=== PATIENT | male | born 1965 | race African-American/Black ===

== ENCOUNTER 2016-11-22 12:47 | Observation (INO) | payer SELFPAY ==
[2016-11-22] MEDS ORDERED: ASPIRIN 81 MG TABLET, CHEWABLE PO ONE (13:10)
--- NOTE | 2016-11-22 13:12 | ER Document Report ---
ED Medical Screen (RME) - General Stated Complaint: ABDOMINAL PAIN Mode of Arrival: Ambulatory Information source: Patient Notes: Patient complains of upper abdominal pain that started 7 this morning and worsened over the past hour. Does complain of some chest discomfort. Patient does complain of shortness of breath but denies any nausea or vomiting. hx: None I have greeted and performed a rapid initial assessment of this patient. A comprehensive ED assessment and evaluation of the patient, analysis of test results and completion of the medical decision making process will be conducted by additional ED providers. TRAVEL OUTSIDE OF THE [place] IN LAST 30 DAYS: No - Related Data Allergies/Adverse Reactions: No Known Allergies Allergy (Unverified 11/22/16 13:11) Past Medical History - Past Medical History Cardiac Medical History: Reports: Hx Hypertension Renal/ Medical History: Reports: Hx Renal Insufficiency Psychiatric Medical History: Denies: Hx Depression - Immunizations Hx Diphtheria, Pertussis, Tetanus Vaccination: No Physical Exam - Vital signs Vitals: Pulse Resp BP 54 L 24 H 168/98 H 11/22/16 12:56 11/22/16 12:56 11/22/16 12:56 - Abdominal Tenderness: Tender - Upper abdomen Course - Vital Signs Vital signs: Temp Pulse Resp BP Pulse Ox 54 L 24 H 168/98 H 11/22/16 12:56 11/22/16 12:56 11/22/16 12:56
[2016-11-22 13:55] LABS: ABSOLUTE EOSINOPHILS # (AUTO) 0.2 10^3/uL (0.0-0.6); ABSOLUTE LYMPHOCYTES (AUTO) 1.8 10^3/uL (0.5-4.7); ABSOLUTE MONOCYTES (AUTO) 0.5 10^3/uL (0.1-1.4); BASOPHILS % (AUTO) 0.4 % (0-2); EOSINOPHILS % (AUTO) 2.5 % (0-6); HEMOGLOBIN 16.3 g/dL (13.5-17.0); HGB HCT DIFFERENCE -3.1; LYMPHOCYTES % (AUTO) 24.3 % (13-45); MEAN CORPUSCULAR HEMOGLOBIN 27.2 pg (27.0-33.4); MEAN CORPUSCULAR HGB CONC 31.3 g/dL (32.0-36.0); MEAN CORPUSCULAR VOLUME 87 fl (80-97); MONOCYTES % (AUTO) 7.2 % (3-13); RED BLOOD COUNT 5.97 10^6/uL (4.35-5.55); RED CELL DISTRIBUTION WIDTH 14.7 % (11.5-14.0); SEGMENTED NEUTROPHILS % (AUTO) 65.6 % (42-78); WHITE BLOOD COUNT 7.6 10^3/uL (4.0-10.5)
[2016-11-22] MEDS ORDERED: LISINOPRIL 10 MG TABLET PO ONE (14:14)
--- NOTE | 2016-11-22 14:14 | ER Document Report ---
ED General - General Chief Complaint: Abdominal Pain Stated Complaint: ABDOMINAL PAIN Mode of Arrival: Ambulatory Information source: Patient Notes: 51 yr old male history of cocaine abuse presents with complaints of severe abdominal pain and chest pain earlier today. Patient notes symptoms have improved significantly felt a sharp pressure sensation in his chest associated with shortness of breath admits to history of hypertension was on lisinopril but has not taken it recently only takes ibuprofen daily Patient last used cocaine on Monday TRAVEL OUTSIDE OF THE [place] IN LAST 30 DAYS: No - HPI Onset: This morning Onset/Duration: Sudden Quality of pain: No pain Severity: Moderate Pain Level: 2 Associated symptoms: Chest pain, Shortness of breath Exacerbated by: Denies Relieved by: Denies Similar symptoms previously: Yes Recently seen / treated by doctor: Yes - Related Data Allergies/Adverse Reactions: No Known Allergies Allergy (Unverified 11/22/16 13:11) Past Medical History - General Information source: Patient - Social History Smoking Status: Never Smoker Cigarette use (# per day): No Chew tobacco use (# tins/day): No Smoking Education Provided: No Frequency of alcohol use: None Drug Abuse: None Family History: Reviewed & Not Pertinent Patient has suicidal ideation: No Patient has homicidal ideation: No - Past Medical History Cardiac Medical History: Reports: Hx Hypertension Renal/ Medical History: Reports: Hx Renal Insufficiency. Denies: Hx Peritoneal Dialysis Psychiatric Medical History: Denies: Hx Depression - Immunizations Hx Diphtheria, Pertussis, Tetanus Vaccination: No Review of Systems - Review of Systems Notes: REVIEW OF SYSTEMS: CONSTITUTIONAL : Denies fever, chills, or sweats. Denies recent illness. EENT: Denies eye, ear, throat, or mouth pain or symptoms. Denies nasal or sinus congestion or discharge. Denies throat, tongue, or mouth swelling or difficulty swallowing. CARDIOVASCULAR: Admits chest pain RESPIRATORY: Admits to shortness of breath GASTROINTESTINAL: Admits to abdominal pain GENITOURINARY: Denies difficulty urinating, painful urination, burning, frequency, blood in urine, or discharge. MUSCULOSKELETAL: Denies back or neck pain or stiffness. Denies joint pain or swelling. SKIN: Denies rash, lesions or sores. HEMATOLOGIC : Denies easy bruising or bleeding. LYMPHATIC: Denies swollen, enlarged glands. NEUROLOGICAL: Denies confusion or altered mental status. Denies passing out or loss of consciousness. Denies dizziness or lightheadedness. Denies headache. Denies weakness or paralysis or loss of use of either side. Denies problems with gait or speech. Denies sensory loss, numbness, or tingling. Denies seizures. PSYCHIATRIC: Denies anxiety or stress. Denies depression, suicidal ideation, or homicidal ideation. ALL OTHER SYSTEMS REVIEWED AND NEGATIVE. Dictation was performed using [employer] voice recognition software PHYSICAL EXAMINATION: GENERAL: Well-appearing, well-nourished and in no acute distress. HEAD: Atraumatic, normocephalic. EYES: Pupils equal round and reactive to light, extraocular movements intact, sclera anicteric, conjunctiva are normal. ENT: Nares patent, oropharynx clear without exudates. Moist mucous membranes. NECK: Normal range of motion, supple without lymphadenopathy LUNGS: Breath sounds clear to auscultation bilaterally and equal. No wheezes rales or rhonchi. HEART: Bradycardia ABDOMEN: Soft, nontender, nondistended abdomen. No guarding, no rebound. No masses appreciated. Musculoskeletal: Normal range of motion, no pitting or edema. No cyanosis. NEUROLOGICAL: Cranial nerves grossly intact. Normal speech, normal gait. Normal sensory, motor exams PSYCH: Normal mood, normal affect. SKIN: Warm, Dry, normal turgor, no rashes or lesions noted. Physical Exam - Vital signs Vitals: Pulse Resp BP 54 L 24 H 168/98 H 11/22/16 12:56 11/22/16 12:56 11/22/16 12:56 Course - Re-evaluation Re-evalutation: 11/22/16 14:11 Patient is noted to have Q waves as well as bradycardia, he is now pain-free 11/22/16 15:21 I will admit to the hospital service for further evaluation of his chest pain given history of cocaine abuse After performing a Medical Screening Examination, I estimate there is LOW risk for RUPTURED ESOPHAGUS, PNEUMOTHORAX, PULMONARY EMBOLISM, ACUTE CORONARY SYNDROME, OR THORACIC AORTIC DISSECTION, thus I consider the discharge disposition reasonable. The patient and I have discussed the diagnosis and risks , and we agree with discharging home with close follow-up. We also discussed returning to the Emergency Department immediately if new or worsening symptoms occur. We have discussed the symptoms which are most concerning (e.g., bloody sputum, worsening pain or shortness of breath) that necessitate immediate return. - Vital Signs Vital signs: Temp Pulse Resp BP Pulse Ox 54 L 19 204/104 H 100 11/22/16 12:56 11/22/16 14:00 11/22/16 14:00 11/22/16 14:00 - Laboratory Result Diagrams: 11/22/16 13:30 11/22/16 13:30 Laboratory results interpreted by me: 11/22/16 13:30 RBC 5.97 H Hct 52.0 H MCHC 31.3 L RDW 14.7 H - Diagnostic Test Radiology reviewed: Image reviewed, Reports reviewed - EKG Interpretation by Me EKG shows normal: Sinus rhythm, [place], Intervals, QRS Complexes - Q waves noted in multiple leads bradycardic Rate: Bradycardia Discharge - Discharge Clinical Impression: Cocaine abuse, Bradycardia Chest pain Qualifiers: Chest pain type: unspecified Qualified Code(s): R07.9 - Chest pain, unspecified Abdominal pain Qualifiers: Abdominal location: unspecified location Qualified Code(s): R10.9 - Unspecified abdominal pain Condition: Stable Disposition: ADMITTED OBSERVATION Admitting Provider: Hospitalist Unit Admitted: Telemetry
[2016-11-22 14:17] LABS: ALANINE AMINOTRANSFERASE 21 U/L (21-72); ALBUMIN 4.3 g/dL (3.5-5.0); ALKALINE PHOSPHATASE 94 U/L (38-126); ANION GAP 17 (5-19); ASPARTATE AMINO TRANSFERASE 18 U/L (17-59); BILIRUBIN,TOTAL 0.3 mg/dL (0.2-1.3); BLOOD UREA NITROGEN 13 mg/dL (7-20); CALCIUM 9.6 mg/dL (8.4-10.2); CARBON DIOXIDE 22 mmol/L (22-30); CHLORIDE 103 mmol/L (98-107); CREATINE KINASE 123 U/L (55-170); CREATININE RESULT 1.12 mg/dL (0.52-1.25); GLUCOSE 107 mg/dL (75-110); LIPASE 92.2 U/L (23-300); MAGNESIUM 1.8 mg/dL (1.6-2.3); POTASSIUM 4.4 mmol/L (3.6-5.0); SODIUM 141.8 mmol/L (137-145); TOTAL PROTEIN 7.4 g/dL (6.3-8.2)
[2016-11-22 14:18] LABS: APPEARANCE,URINE CLEAR; BILIRUBIN,URINE NEGATIVE (NEGATIVE); GLUCOSE, URINE NEGATIVE (NEGATIVE); KETONES,URINE NEGATIVE (NEGATIVE); LEUKOCYTE ESTERASE,URINE NEGATIVE (NEGATIVE); NITRITE,URINE NEGATIVE (NEGATIVE); PROTEIN,URINE NEGATIVE (NEGATIVE); UROBILINOGEN,URINE NEGATIVE mg/dL (<2.0)
[2016-11-22 14:26] LABS: CREATINE KINASE MB 1.61 ng/mL (<4.55)
[2016-11-22 14:30] LABS: TROPONIN I 0.063 ng/mL
[2016-11-22 14:35] LABS: URINE BARBITURATES SCREEN NEGATIVE; URINE METHADONE SCREEN NEGATIVE; URINE PHENCYCLIDINE SCREEN NEGATIVE
[2016-11-22] MEDS ORDERED: DIAZEPAM 5 MG TABLET PO PRN (15:28)
[2016-11-22] MEDS ORDERED: NITROGLYCERIN 0.4 MG/TAB 25 TAB/BOTTLE SL PRN (15:28)
[2016-11-22] MEDS ORDERED: HYDRALAZINE HCL INJ/PF 20 MG/1 ML SDV IV PRN (15:34)
--- NOTE | 2016-11-22 16:24 | EKG REPORT ---
SEVERITY:- BORDERLINE ECG - SINUS BRADYCARDIA ATRIAL PREMATURE COMPLEX BORDERLINE INFERIOR Q WAVES : Confirmed by: Gilmar Sethi MD 22-Nov-2016 16:24:19
[2016-11-22] MEDS ORDERED: MAG CARB/AL HYDROX/ALGINIC AC 355 ML BOTTLE PO PRN (16:57)
[2016-11-22] MEDS ORDERED: LANSOPRAZOLE 30 MG TAB.RAP.DR PO SCH (17:00)
--- NOTE | 2016-11-22 17:14 | PDOC H&P ---
History of Present Illness Admission Date/PCP: 11/22/16 15:28 Patient complains of: Chest pain, abdominal pain and shortness of breath History of Present Illness: GONZALES MONTIEL is a 51 year old male who presents to [facility]'s emergency department this afternoon, with complaints of abdominal pain radiating up to his mid sternum, and shortness of breath. Patient states pain began acutely this morning at 8 AM and has been constant since that time. He describes the pain as a burning sensation that began his abdomen radiated up to his chest. The pain has waxed and waned in intensity. At the present time he rates the pain a 1, on the 0-5 pain scale. He has not had similar pain in the past. He does have a history of hypertension and dyslipidemia. He has not been taking any medications prescribed. He also has a history of recent cocaine use on Monday. He was found to be extremely hypertensive and bradycardic presentation. He states he is short of breath with exertion, which is new as well. He denies any nausea, vomiting, diaphoresis, or palpitations associated with pain. He did have a stress test 2 years ago which was negative. He denies a family history of coronary artery disease in either parent. Past Medical History Cardiac Medical History: Reports: Hyperlipidema, Hypertension Pulmonary Medical History: Reports: None EENT Medical History: Reports: None Neurological Medical History: Reports: None Endocrine Medical History: Reports: None Renal/ Medical History: Reports: None Malignancy Medical History: Reports: None GI Medical History: Reports: None Musculoskeltal Medical History: Reports: None Skin Medical History: Reports: None Psychiatric Medical History: Reports: Substance Abuse Denies: Depression Traumatic Medical History: Reports: None Hematology: Reports: None Infectious Medical History: Reports: None Past Surgical History Past Surgical History: Reports: None Social History Information Source: Patient Lives with: Family Smoking Status: Never Smoker Frequency of Alcohol Use: Rare Hx Recreational Drug Use: Yes Drugs: Cocaine Hx Prescription Drug Abuse: No - Advance Directive Resuscitation Status: Full Code Surrogate healthcare decision maker:: Father, should he become incapacitated Family History Family History: Hyperlipidemia, Hypertension Parental Family History Reviewed: Yes Children Family History Reviewed: Yes Sibling(s) Family History Reviewed.: Yes Medication/Allergy Home Medications: No Home Medications 11/22/16 Allergies/Adverse Reactions: No Known Allergies Allergy (Unverified 11/22/16 13:11) Review of Systems Constitutional: ABSENT: chills, fever(s), headache(s), weight gain, weight loss Eyes: ABSENT: visual disturbances Ears: ABSENT: hearing changes Cardiovascular: PRESENT: chest pain. ABSENT: dyspnea on exertion, edema, orthropnea, palpitations Respiratory: PRESENT: dyspnea - on exertion today Gastrointestinal: PRESENT: abdominal pain, heartburn Genitourinary: ABSENT: dysuria, hematuria Musculoskeletal: ABSENT: joint swelling Integumentary: PRESENT: as per HPI Neurological: ABSENT: abnormal gait, abnormal speech, confusion, dizziness, focal weakness, syncope Psychiatric: ABSENT: anxiety, depression, homidical ideation, suicidal ideation Endocrine: ABSENT: cold intolerance, heat intolerance, polydipsia, polyuria Hematologic/Lymphatic: ABSENT: easy bleeding, easy bruising Physical Exam Vital Signs: Temp Pulse Resp BP Pulse Ox 54 L 17 203/107 H 91 L 11/22/16 12:56 11/22/16 15:32 11/22/16 16:02 11/22/16 16:02 Intake & Output 11/21/16 11/22/16 11/23/16 06:59 06:59 06:59 Weight 79.379 kg General appearance: PRESENT: no acute distress, well-developed, well-nourished Head exam: PRESENT: atraumatic, normocephalic Eye exam: PRESENT: conjunctiva pink, EOMI, PERRLA. ABSENT: scleral icterus Ear exam: PRESENT: normal external ear exam Mouth exam: PRESENT: moist, tongue midline Neck exam: ABSENT: carotid bruit, JVD, lymphadenopathy, thyromegaly Respiratory exam: PRESENT: clear to auscultation ines. ABSENT: rales, rhonchi, wheezes Cardiovascular exam: PRESENT: bradycardia, RRR. ABSENT: diastolic murmur, rubs , systolic murmur Pulses: PRESENT: normal dorsalis pedis pul Vascular exam: PRESENT: normal capillary refill GI/Abdominal exam: PRESENT: normal bowel sounds, soft. ABSENT: distended, guarding, mass, organolmegaly, rebound, tenderness Rectal exam: PRESENT: deferred Extremities exam: PRESENT: full ROM. ABSENT: calf tenderness, clubbing, pedal edema Neurological exam: PRESENT: alert, awake, oriented to person, oriented to place , oriented to time, oriented to situation, CN II-XII grossly intact. ABSENT: motor sensory deficit Psychiatric exam: PRESENT: appropriate affect, normal mood. ABSENT: homicidal ideation, suicidal ideation Skin exam: PRESENT: dry, intact, warm. ABSENT: cyanosis, rash Results Impressions: Chest X-Ray 11/22/16 13:11 IMPRESSION: NO SIGNIFICANT RADIOGRAPHIC FINDING IN THE CHEST. Assessment & Plan - Diagnosis (1) Chest pain Qualifiers: Chest pain type: unspecified Qualified Code(s): R07.9 - Chest pain, unspecified Is this a current diagnosis for this admission?: YesPlan: Most likely epigastric in nature. Will admit to telemetry on observation. Cardiolite stress test in am if troponins are negative. Patient does have borderline Q waves in leads II, III and AVF. He had a negative treadmill stress test 2 years ago . Positive for recent cocaine use on Monday (2) Abdominal pain Qualifiers: Abdominal location: epigastric Qualified Code(s): R10.13 - Epigastric pain Is this a current diagnosis for this admission?: YesPlan: Will start on PPI therapy, prn Gaviscon (3) Bradycardia Is this a current diagnosis for this admission?: YesPlan: Will continue to monitor (4) Cocaine abuse Is this a current diagnosis for this admission?: YesPlan: Continue to monitor (5) Essential (primary) hypertension Is this a current diagnosis for this admission?: YesPlan: Patient was given dose of lisinopril in the ED. Will start prn hydralazine - Time Time Spent: 50 to 70 Minutes Critical Time spent with patient: 25-34 minutes Medications reviewed and adjusted accordingly: Yes Anticipated discharge: Home
[2016-11-22] MEDS ORDERED: ATORVASTATIN CALCIUM 40 MG TABLET PO SCH (22:00)
[2016-11-22] MEDS ORDERED: AMLODIPINE BESYLATE 5 MG TABLET PO SCH (22:00)
[2016-11-23] MEDS ORDERED: HEPARIN SODIUM,PORCINE/D5W 25,000 UNIT/250 ML RTUINJ IV PRN (02:28)
[2016-11-23] MEDS ORDERED: HEPARIN SOD (PORCINE) 1,000 UNIT/ML 10 ML VIAL IV PRN (02:28)
[2016-11-23] MEDS ORDERED: MORPHINE SULFATE 10 MG/ML INJ IV PRN (02:39)
[2016-11-23] MEDS ORDERED: ATORVASTATIN CALCIUM 80 MG TABLET PO ONE (02:53)
[2016-11-23 03:05] LABS: ABSOLUTE LYMPHOCYTES (AUTO) 0.7 10^3/uL (0.5-4.7); ABSOLUTE MONOCYTES (AUTO) 0.5 10^3/uL (0.1-1.4); ABSOLUTE NEUT (AUTO) 11.6 10^3/uL (1.7-8.2); BASOPHILS % (AUTO) 0.2 % (0-2); HEMATOCRIT 53.8 % (37.9-51.0); HEMOGLOBIN 17.2 g/dL (13.5-17.0); HGB HCT DIFFERENCE -2.2; LYMPHOCYTES % (AUTO) 5.8 % (13-45); MEAN CORPUSCULAR HEMOGLOBIN 27.5 pg (27.0-33.4); MEAN CORPUSCULAR HGB CONC 31.9 g/dL (32.0-36.0); MEAN CORPUSCULAR VOLUME 86 fl (80-97); MONOCYTES % (AUTO) 3.7 % (3-13); RED BLOOD COUNT 6.24 10^6/uL (4.35-5.55); RED CELL DISTRIBUTION WIDTH 14.8 % (11.5-14.0); SEGMENTED NEUTROPHILS % (AUTO) 90.3 % (42-78); WHITE BLOOD COUNT 12.8 10^3/uL (4.0-10.5)
[2016-11-23 03:19] LABS: PARTIAL THROMBOPLASTIN TIME 27.9 SEC (23.5-35.8)
[2016-11-23 03:30] LABS: CREATINE KINASE MB 79.5 ng/mL (<4.55); TROPONIN I 4.49 ng/mL
[2016-11-23] MEDS ORDERED: NORMAL SALINE 1000 ML 1,000 ML IV ONE (03:31)
[2016-11-23] MEDS ORDERED: CLOPIDOGREL BISULFATE 300 MG TABLET PO ONE (03:34)
--- NOTE | 2016-11-23 03:34 | PDOC TRANSFER SUMMARY ---
General Admission Date/PCP: 11/22/16 15:28 Patient is a 51-year-old male with past medical history of hypertension. Who developed chest pain shortly after use of smoked cocaine, presenting with hypertensive urgency who has had greatly improved blood pressure control without tachycardia but persistent intermittent chest pain, elevation in cardiac enzymes from indeterminant to positive at 3.1 along with EKG changes of deep Q waves in inferior leads and a prolonged QT interval and a normal magnesium level. I've discussed the case with on-call cardiology Dr. Stephenson recommending transfer for cardiac catheterization. He has no evidence of anemia nor renal failure and he is currently stable for transfer with a blood pressure of 135/83 pulse of 54 respirations 17 setting 98% on 2 L nasal cannula. Medications include aspirin 325 mg, Norvasc 5 mg by mouth, morphine 2 mg IV every 2 hours, Lipitor 80 mg by mouth, IV heparin protocol, lisinopril 20 mg, Nitrostat 0.4 every 5 minutes when necessary, Valium 5 mg every 6 hours when necessary. Discussed the case with Dr. Barrientos at [facility] in [place] who accepts him in transfer and additionally recommends Plavix 300 mg by mouth 1 now Admission Date: 11/22/16 Transfer Date: 11/23/16 Accepting Facility: [facility] Resuscitation Status: Full Code - Transfer Medications Home Medications: No Home Medications 11/22/16 Transfer Medications: Current Medications Al Hydroxide/Mg Carbonate (Gaviscon Susp 355 Ml) 30 ml PO Q4HP PRN PRN Reason: indigestion Stop: 12/22/16 16:56 Amlodipine Besylate (Norvasc 5 Mg Tablet) 5 mg PO Q12 BELKIS Stop: 12/22/16 21:59 Last Admin: 11/22/16 22:23 Dose: 5 mg Aspirin (Ecotrin 81 Mg Ec Tablet) 81 mg PO DAILY BELKIS Stop: 12/23/16 09:59 Atorvastatin Calcium (Lipitor 40 Mg Tablet) 40 mg PO QHS BELKIS Stop: 12/22/16 21:59 Last Admin: 11/22/16 22:23 Dose: 40 mg Diazepam (Valium 5 Mg Tablet) 5 mg PO Q8HP PRN PRN Reason: ANXIETY Stop: 11/29/16 15:27 Last Admin: 11/22/16 22:29 Dose: 5 mg Heparin Sodium (Porcine) (Heparin Inj 1,000 Unit/Ml 10 Ml Vial) 0 - 12,000 unit IV .BOLUS PER PROTOCOL PRN; Protocol PRN Reason: RESPOND TO aPTT VALUE Stop: 12/23/16 02:27 Hydralazine HCl (Apresoline Inj/Pf 20 Mg/1 Ml Sdv) 10 mg IV Q6HP PRN Stop: 12/22/16 15:33 Last Admin: 11/22/16 16:23 Dose: 10 mg Heparin Sodium/Dextrose (Heparin Rtu 25,000 Unit/250 Ml D5w Premix) 250 mls @ 0 mls/hr IV CONTINUOUS PRN; Protocol; Titrate PRN Reason: THIS MED IS NOT "PRN" Stop: 12/23/16 02:27 Lansoprazole (Prevacid 30 Mg Odt Tablet) 30 mg PO BID@0600,1700 BELKIS Stop: 12/22/16 16:59 Last Admin: 11/22/16 17:09 Dose: 30 mg Nitroglycerin (Nitrostat 0.4 Mg (1/150 Gr) Tabs 25/Bottle) 1 tab SL Q5MP PRN PRN Reason: chest pain Stop: 11/24/16 15:29 Sodium Chloride (Saline Flush 2.5 Ml Monoject Prefil Syrin) 2.5 ml IV Q8 BELKIS Stop: 12/22/16 21:59 Last Admin: 11/22/16 22:31 Dose: 2.5 ml - Allergies Allergies/Adverse Reactions: No Known Allergies Allergy (Unverified 11/22/16 13:11) Physical Exam Vital Signs: Temp Pulse Resp BP Pulse Ox 98.9 F 54 L 17 135/83 H 96 11/23/16 00:01 11/22/16 12:56 11/22/16 22:31 11/23/16 00:01 11/23/16 00:01 Intake & Output 11/21/16 11/22/16 11/23/16 11:59 11:59 11:59 Weight 79.379 kg Results Laboratory Results: 11/22/16 11/23/16 11/23/16 19:30 01:26 01:26 Creatine Kinase 788 H Troponin I 0.629 3.100 Impressions: Chest X-Ray 11/22/16 13:11 IMPRESSION: NO SIGNIFICANT RADIOGRAPHIC FINDING IN THE CHEST.
[2016-11-23 04:11] VITALS: BP 114/77
--- NOTE | 2016-11-23 08:17 | EKG REPORT ---
SEVERITY:- ABNORMAL ECG - SINUS RHYTHM PROBABLE INFERIOR INFARCT, AGE INDETERMINATE PROLONGED QT INTERVAL : Confirmed by: Gilmar Sethi MD 23-Nov-2016 08:16:28
[2016-11-23] MEDS ORDERED: ASPIRIN 81 MG TABLET, ENT COATED PO SCH (10:00)
== END 2016-11-23 05:00 | disposition short-term general hospital (02) ==
LOC: ER 12:47 → UNDOADMOB 15:26 → EH 15:26
PROVIDERS: ADMIT Family Medicine; ATTEND Family Medicine
DX: R07.9 Chest pain, unspecified (principal); R10.9 Unspecified abdominal pain; R06.02 Shortness of breath; I10 Essential (primary) hypertension; E78.5 Hyperlipidemia, unspecified; F14.10 Cocaine abuse, uncomplicated; R00.1 Bradycardia, unspecified
CPT/HCPCS: 93005 ×2; 99285; 96374; 36415; 82553 ×2; 82550 ×2; 83690; 83735; 85025 ×2; 85610; 85730; 80053; 81001; 84484 ×2; 80307; 71020; 93010 ×2; G0378 ×2; J3490 ×3; J1644 ×2; J0360

== ENCOUNTER → 2017-01-27 | Outpatient (CLI) | payer BC | LOC: RAD 09:26 | PROVIDERS: ATTEND Physician Assistant | DX: S46.202D Unspecified injury of muscle, fascia and tendon of other parts of biceps, left arm, subsequent encounter (principal); X58.XXXD Exposure to other specified factors, subsequent encounter; M25.511 Pain in right shoulder ==

== ENCOUNTER 2017-03-27 08:15 | Emergency (ER) | payer BC ==
[2017-03-27 08:28] VITALS: BP 127/90
[2017-03-27] MEDS ORDERED: HYDROCODONE/ACETAMINOPHEN 5-325 MG TABLET PO ONE (08:41)
--- NOTE | 2017-03-27 08:42 | ER Document Report ---
HPI - HPI Patient complains to provider of: Foot and ankle injury Onset: Yesterday Onset/Duration: Sudden Quality of pain: Achy Pain Level: 4 Context: Patient states that he rolled his right foot yesterday while walking injuring his right foot and ankle. Patient complains of pain with weightbearing. Associated Symptoms: Other - Foot injury Exacerbated by: Standing, Movement, Walking Relieved by: Denies Similar symptoms previously: No Recently seen / treated by doctor: No - ROS ROS below otherwise negative: Yes Systems Reviewed and Negative: Yes All other systems reviewed and negative - CONSTITUTIONAL Constitutional: DENIES: Fever - NEURO Neurology: DENIES: Weakness - GASTROINTESTINAL Gastrointestinal: DENIES: Nausea, Patient vomiting - MUSCULOSKELETAL Musculoskeletal: REPORTS: Extremity pain - right foot/ankle. 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 Denies: Hx Peritoneal Dialysis Psychiatric Medical History: Denies: Hx Depression Surgical Hx: Negative - Immunizations Hx Diphtheria, Pertussis, Tetanus Vaccination: No Vertical Provider Document - CONSTITUTIONAL Agree With Documented VS: Yes Exam Limitations: No Limitations General Appearance: WD/WN, No Apparent Distress - INFECTION CONTROL TRAVEL OUTSIDE OF THE [place] IN LAST 30 DAYS: No - HEENT HEENT: Atraumatic, Normocephalic - NECK Neck: Normal Inspection - RESPIRATORY Respiratory: No Respiratory Distress O2 Sat by Pulse Oximetry: 97 - CARDIOVASCULAR Pulses: Normal: Dorsalis pedis - MUSCULOSKELETAL/EXTREMETIES Musculoskeletal/Extremeties: MAEW, Tender - Right ankle tenderness along the lateral malleolar area, no edema. Right lateral foot tenderness overlying the fifth metatarsal and cuboid bone, no deformity, no edema. - NEURO Level of Consciousness: Awake, Alert, Appropriate Motor/Sensory: No Motor Deficit - DERM Integumentary: Warm, Dry, No Rash Course - Vital Signs Vital signs: Temp Pulse Resp BP Pulse Ox 97.8 F 65 20 127/90 H 97 03/27/17 08:23 03/27/17 08:23 03/27/17 08:23 03/27/17 08:23 03/27/17 08:23 - Diagnostic Test Radiology reviewed: Pending, Image reviewed Procedures - Immobilization Right Foot Pre-Proc Neuro Vasc Exam: Normal Immobilizer type: Jorge wrap, Post-op shoe Performed by: PCT Post-Proc Neuro Vasc Exam: Normal Alignment checked and good: Yes Discharge - Discharge Clinical Impression: Sprain of foot, right Qualifiers: Encounter type: initial encounter Qualified Code(s): S93.601A - Unspecified sprain of right foot, initial encounter Ankle sprain Qualifiers: Encounter type: initial encounter Involved ligament of ankle: unspecified ligament Laterality: right Qualified Code(s): S93.401A - Sprain of unspecified ligament of right ankle, initial encounter Condition: Stable Disposition: HOME, SELF-CARE Instructions: Sprain ([facility]), Sprained Ankle ([facility]), Oral Narcotic Medication ([facility] ), Ice Packs ([facility]) Additional Instructions: Return immediately for any new or worsening symptoms Followup with your primary care provider, call tomorrow to make a followup appointment Weightbearing as tolerated Follow-up with orthopedic doctor for any continued pain or problems Prescriptions: Hydrocodone/Acetaminophen [[place] 5-325 Tablet] 1 each PO Q4 PRN #15 tablet PRN Reason: Forms: Return to Work Referrals: [facility] [Provider Group] - Follow up as needed
--- NOTE | 2017-03-27 09:43 | RADIOLOGY REPORT (SQ) ---
EXAM DESCRIPTION: FOOT RIGHT COMPLETE COMPLETED DATE/TIME: 03/27/2017 9:28 am REASON FOR STUDY: rolled foot, foot/ankle pain COMPARISON: None. NUMBER OF VIEWS: Three views. TECHNIQUE: AP, lateral and oblique radiographic images acquired of the right foot. LIMITATIONS: None. FINDINGS: MINERALIZATION: Normal. BONES: No acute fracture or dislocation. No worrisome bone lesions. JOINTS: No effusions. SOFT TISSUES: No soft tissue swelling. No foreign body. OTHER: No other significant finding. IMPRESSION: NEGATIVE STUDY OF THE RIGHT FOOT. NO RADIOGRAPHIC EVIDENCE OF ACUTE INJURY. TECHNICAL DOCUMENTATION: JOB ID: [id number] [employer]- All Rights Reserved
--- NOTE | 2017-03-27 09:44 | RADIOLOGY REPORT (SQ) ---
EXAM DESCRIPTION: ANKLE RIGHT COMPLETE COMPLETED DATE/TIME: 03/27/2017 9:28 am REASON FOR STUDY: rolled foot, foot/ankle pain COMPARISON: None. NUMBER OF VIEWS: Three views. TECHNIQUE: AP, lateral, and oblique radiographic images acquired of the right ankle. LIMITATIONS: None. FINDINGS: MINERALIZATION: Normal. BONES: No acute fracture or dislocation. No worrisome bone lesions. JOINTS: No effusions. SOFT TISSUES: No soft tissue swelling. No foreign body. OTHER: No other significant finding. IMPRESSION: NEGATIVE STUDY OF THE RIGHT ANKLE. NO RADIOGRAPHIC EVIDENCE OF ACUTE INJURY. TECHNICAL DOCUMENTATION: JOB ID: [id number] [employer]- All Rights Reserved
== END 2017-03-27 10:09 | disposition home or self-care (01) ==
LOC: ER 08:15
DX: S93.601A Unspecified sprain of right foot, initial encounter (principal); S93.401A Sprain of unspecified ligament of right ankle, initial encounter; X50.0XXA Overexertion from strenuous movement or load, initial encounter; Y93.01 Activity, walking, marching and hiking; I25.2 Old myocardial infarction; I10 Essential (primary) hypertension
CPT/HCPCS: 99283

== ENCOUNTER 2017-04-30 11:57 | Emergency (ER) | payer BC ==
[2017-04-30] MEDS ORDERED: DIPHENHYDRAMINE HCL 50 MG CAPSULE PO ONE (12:45)
[2017-04-30] MEDS ORDERED: DEXAMETHASONE 4 MG TABLET PO ONE (12:45)
[2017-04-30] MEDS ORDERED: FAMOTIDINE 20 MG TABLET PO ONE (12:45)
--- NOTE | 2017-04-30 12:53 | ER Document Report ---
ED Allergic Reaction - General Chief Complaint: Lip Swelling Stated Complaint: POSSIBLE ALLERGIC REACTION Time Seen by Provider: 04/30/17 12:37 Mode of Arrival: Ambulatory Information source: Patient TRAVEL OUTSIDE OF THE [place] IN LAST 30 DAYS: No - HPI Onset: Yesterday - MID-DAY Onset/Duration: Sudden Quality of pain: No pain Severity: Mild Medication Exposure: SEE LIST Skin rash / itching: Trunk - SCAPULAR AREAS Swelling: Lip(s) Associated symptoms: None Similar symptoms previously: No Recently seen / treated by doctor: No - Related Data Allergies/Adverse Reactions: pain medications Adverse Reaction (Uncoded 03/27/17 08:26) Past Medical History - General Information source: Patient - Social History Smoking Status: Never Smoker Cigarette use (# per day): No Chew tobacco use (# tins/day): No Frequency of alcohol use: None Drug Abuse: None Lives with: Spouse/Significant other Family History: Hyperlipidemia, Hypertension Patient has suicidal ideation: No Patient has homicidal ideation: No - Past Medical History Cardiac Medical History: Reports: Hx Heart Attack, Hx Hypercholesterolemia, Hx Hypertension Pulmonary Medical History: Reports: None EENT Medical History: Reports: None Neurological Medical History: Reports: None Endocrine Medical History: Reports: None Renal/ Medical History: Reports: None, Hx Renal Insufficiency. Denies: Hx Peritoneal Dialysis Malignancy Medical History: Reports None GI Medical History: Reports: None Musculoskeltal Medical History: Reports None Psychiatric Medical History: Reports: None Denies: Hx Depression Surgical Hx: Negative - Immunizations Hx Diphtheria, Pertussis, Tetanus Vaccination: No Review of Systems - Review of Systems Constitutional: No symptoms reported EENT: See HPI Cardiovascular: No symptoms reported Respiratory: No symptoms reported Gastrointestinal: No symptoms reported Genitourinary: No symptoms reported Male Genitourinary: No symptoms reported Musculoskeletal: No symptoms reported Skin: See HPI Neurological/Psychological: No symptoms reported Physical Exam - Vital signs Vitals: Temp Pulse Resp BP Pulse Ox 98.4 F 68 18 148/80 H 98 04/30/17 12:12 04/30/17 12:12 04/30/17 12:12 04/30/17 12:12 04/30/17 12:12 Interpretation: Normal - General General appearance: Appears well, Alert In distress: None - HEENT Head: Normocephalic Eyes: Normal Conjunctiva: Normal Ears: Normal Nasal: Normal Mouth/Lips: Angioedema - LIPS ONLY, TONGUE NOT INVOLVED Mucous membranes: Normal Pharynx: Normal Neck: Normal - Respiratory Respiratory status: No respiratory distress Breath sounds: Normal - Cardiovascular Rhythm: Regular Heart sounds: Normal auscultation Murmur: No - Abdominal Inspection: Normal Distension: No distension - Extremities General upper extremity: Normal inspection General lower extremity: Normal inspection - Neurological Neuro grossly intact: Yes Cognition: Normal Orientation: AAOx4 - Psychological Associated symptoms: Normal affect, Normal mood - Skin Skin Temperature: Warm Skin Moisture: Dry Skin Color: Normal Skin Turgor: Elastic Course - Re-evaluation Re-evalutation: 04/30/17 15:51 Patient reports swelling has improved. No difficulty with breathing or swallowing. Objectively he does seem to be improved. Will discharge with instructions to hold Brilinta and return to ER as needed. Follow-up with corporate associate attorney within the next 3-5 days. - Vital Signs Vital signs: Temp Pulse Resp BP Pulse Ox 98.4 F 68 18 148/80 H 98 04/30/17 12:12 04/30/17 12:12 04/30/17 12:12 04/30/17 12:12 04/30/17 12:12 Discharge - Discharge Clinical Impression: Angioedema Qualifiers: Encounter type: initial encounter Qualified Code(s): T78.3XXA - Angioneurotic edema, initial encounter Condition: Stable Disposition: HOME, SELF-CARE Instructions: Angioedema ([facility]) Additional Instructions: STOP TAKING BRILINTA FOR NOW. CONTINUE OTHER MEDS BEFORE. IF SYMPTOMS RECUR, TAKE BENADRYL, 25-50 mg EVERY 4-6 HOURS. IF WORSENING SYMPTOMS, RETURN TO E.R. FOLLOW UP WITH YOUR NAT INSTRUCTOR SCHEDULED MONDAY.
[2017-04-30 16:06] VITALS: BP 137/88
== END 2017-04-30 16:04 | disposition home or self-care (01) ==
LOC: ER 11:57
DX: T78.3XXA Angioneurotic edema, initial encounter (principal); I25.2 Old myocardial infarction; I10 Essential (primary) hypertension
CPT/HCPCS: 99283

== ENCOUNTER 2018-04-29 21:28 | Emergency (ER) | payer BC, OTHER ==
[2018-04-29 21:47] VITALS: BP 134/75
--- NOTE | 2018-04-29 22:04 | ER Document Report ---
ED Neck/Back Problem - General Chief Complaint: Back Pain Stated Complaint: BACK PAIN Time Seen by Provider: 04/29/18 22:01 Notes: Patient is a 52-year-old male who presents with 2 weeks of right lower back pain that is worse with movement. 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 He denies change in bowel or bladder, saddle anesthesia, numbness, tingling, back injury, history of IVDA or fevers. TRAVEL OUTSIDE OF THE [place] IN LAST 30 DAYS: No - Related Data Allergies/Adverse Reactions: pain medications Adverse Reaction (Uncoded 03/27/17 08:26) Past Medical History - General Information source: Patient - Social History Smoking Status: Unknown if Ever Smoked Family History: Hyperlipidemia, Hypertension - Past Medical History Cardiac Medical History: Reports: Hx Heart Attack, Hx Hypercholesterolemia, Hx Hypertension Renal/ Medical History: Reports: Hx Renal Insufficiency. Denies: Hx Peritoneal Dialysis Psychiatric Medical History: Denies: Hx Depression - Immunizations Hx Diphtheria, Pertussis, Tetanus Vaccination: No Review of Systems - Review of Systems Notes: REVIEW OF SYSTEMS: CONSTITUTIONAL: -fevers, -chills EENT: -eye pain, -difficulty swallowing, -nasal congestion CARDIOVASCULAR: -chest pain, -syncope. RESPIRATORY: -cough, -SOB GASTROINTESTINAL: -abdominal pain, -nausea, -vomiting, -diarrhea GENITOURINARY: -dysuria, -hematuria MUSCULOSKELETAL: +right low back pain, -neck pain SKIN: -rash or skin lesions. HEMATOLOGIC: -easy bruising or bleeding. LYMPHATIC: -swollen, enlarged glands. NEUROLOGICAL: -altered mental status or loss of consciousness, -headache, - neurologic symptoms PSYCHIATRIC: -anxiety, -depression. ALL OTHER SYSTEMS REVIEWED AND NEGATIVE. Physical Exam - Vital signs Vitals: Temp Pulse Resp BP Pulse Ox 99.0 F 64 16 134/75 H 97 04/29/18 21:46 04/29/18 21:46 04/29/18 21:46 04/29/18 21:46 04/29/18 21:46 - Notes Notes: PHYSICAL EXAMINATION: GENERAL: Well-appearing, well-nourished and in no acute distress. HEAD: Atraumatic, normocephalic. EYES: Pupils equal round and reactive to light, extraocular movements intact, sclera anicteric, conjunctiva are normal. ENT: nares patent, oropharynx clear without exudates. Moist mucous membranes. NECK: Normal range of motion, supple without lymphadenopathy LUNGS: Breath sounds clear to auscultation bilaterally and equal. No wheezes rales or rhonchi. HEART: Regular rate and rhythm without murmurs ABDOMEN: Soft, nontender, normoactive bowel sounds. No guarding, no rebound. No masses appreciated. EXTREMITIES: Normal range of motion, no pitting or edema. No cyanosis. Strong distal pulses. BACK: Mild right lower back tenderness. No midline tenderness. Negative straight leg tests bilaterally. NEUROLOGICAL: Cranial nerves grossly intact. Normal speech, normal gait. Normal sensory and motor exams. PSYCH: Normal mood, normal affect. SKIN: Warm, Dry, normal turgor, no rashes or lesions noted. Course - Re-evaluation Re-evalutation: Patient with no red flag signs for low back pain at this time. 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 Instructed him about symptomatic treatment for low back pain and he will follow-up with his primary care physician. - Vital Signs Vital signs: Temp Pulse Resp BP Pulse Ox 99.0 F 64 16 134/75 H 97 04/29/18 21:46 04/29/18 21:46 04/29/18 21:46 04/29/18 21:46 04/29/18 21:46 Discharge - Discharge Clinical Impression: Back pain Qualifiers: Back pain location: low back pain Chronicity: unspecified Back pain laterality : right Sciatica presence: without sciatica Qualified Code(s): M54.5 - Low back pain Condition: Stable Disposition: HOME, SELF-CARE Additional Instructions: LOW BACK PAIN: Three out of every four people will have an episode of disabling back pain during their lifetime. Most commonly the pain is due to straining of the muscles and ligaments in the low back. Usual treatment includes: (1) Rest on a firm surface. Avoid lying on your stomach. (2) Ice pack the painful area. After a few days, gentle heat may be used intermittently to relax the area, or ice packs can be continued. (3) Medication may be needed -- muscle relaxers and antiinflammatory medicines are commonly used. (4) As the back improves, exercises are prescribed to strengthen the back and abdominal muscles. Your doctor will advise you on the proper care for your back at each stage in your recovery. You may be better in a few days -- or healing may take several weeks. If new symptoms of a "herniated disc" (radiation of pain, numbness, or tingling down the back of the leg or weakness in the leg) occur, you should be re-examined. Further testing may be necessary. MUSCLE RELAXERS: Muscle relaxing medications are usually prescribed for acute muscle spasm or injury to the neck and back. They are often combined with antiinflammatory pain medication for increased relief. You may stop the muscle relaxer when the pain and stiffness have improved. Start the medication again if spasms recur. Muscle relaxers may cause drowsiness, especially with the first dose. Do not operate machinery or drive while under the effects of the medication. Most muscle relaxers last up to 24 hours. Do not combine the medication with alcohol. ICE PACKS: Apply ice packs frequently against the painful area. Many different schedules are recommended, such as "20 minutes on, 20 minutes off" or "one hour ice, two hours rest." If you need to work, you may need to go longer between ice treatments. You should plan to have the area ice packed AT LEAST one fourth of the time. The ice should be applied over the wrap, tape, or splint, or over a layer of cloth -- not directly against the skin. Some ice bags have a built-in cloth and can be put directly on the skin. WARM PACKS: After approximately two days, apply gentle heat (such as a heating pad or hot water bottle) for about 20 to 30 minutes about every two hours -- at least four times daily. Warmth and elevation will help you make a more rapid recovery , and will ease the pain considerably. Do not use HOT heat, and never apply heat for longer than 30 minutes. The continuous heat can invisibly damage skin and muscles -- even when no burn is seen on the surface. Damaged muscles can make you MORE sore. FOLLOW-UP CARE: If you have been referred to a physician for follow-up care, call the physician s office for an appointment as you were instructed or within the next two days. If you experience worsening or a significant change in your symptoms, notify the physician immediately or return to the Emergency Department at any time for re-evaluation. Prescriptions: Diclofenac Sodium [Voltaren] 100 gm TP Q8H PRN #100 gel..gram. PRN Reason: Lidocaine [Lidoderm 5% (700 mg) Transdermal Patch] 1 patch TP DAILY #10 adh..patch Methocarbamol [Robaxin 500 mg Tablet] 500 mg PO Q4H PRN #15 tablet PRN Reason: Forms: Elevated Blood Pressure Referrals: MAHNAZ LEIVA PA [Primary Care Provider] - Follow up as needed
[2018-04-29] MEDS ORDERED: METHOCARBAMOL 500 MG TABLET PO ONE (22:10)
[2018-04-29] MEDS ORDERED: LIDOCAINE 5% (700 MG) TRANSDERMAL ADH..PATCH TP ONE (22:11)
== END 2018-04-29 22:51 | disposition home or self-care (01) ==
LOC: ER 21:28
DX: M54.5 Low back pain (principal); I10 Essential (primary) hypertension
CPT/HCPCS: 99283

== ENCOUNTER 2018-10-17 11:53 | Observation (INO) | payer BC ==
--- NOTE | 2018-10-17 13:12 | ER Document Report ---
ED Cardiac - General Stated Complaint: CHEST PAIN Time Seen by Provider: 10/17/18 12:50 Notes: Patient says that he has been experiencing chest pains for the past 2 days and has been feeling short of breath for the past 2 weeks. The pain is somewhat to the left of center of the front of the chest and is constant. He went to his accounting manager assistant controller, Dr. Daley, this morning and they checked him and gave no a couple of nitroglycerin and baby aspirin's and told him to come to the emergency department. EMS was called and they gave him a third nitroglycerin in route here. Still feels tight in the front of his chest and especially when he takes a deep breath. Has not had this previously although he has had a couple of heart attacks in the past with different symptoms. Denies any nausea or vomiting. Denies any different breathing. Patient is on blood thinners, Ranexa and another one that he does not recall the name. Hypertension. High cholesterol. Not diabetic. Does not smoke. TRAVEL OUTSIDE OF THE [place] IN LAST 30 DAYS: No - Related Data Allergies/Adverse Reactions: pain medications Adverse Reaction (Uncoded 03/27/17 08:26) Past Medical History - Social History Smoking Status: Unknown if Ever Smoked Family History: Reviewed & Not Pertinent, Hyperlipidemia, Hypertension - Past Medical History Cardiac Medical History: Reports: Hx Heart Attack, Hx Hypercholesterolemia, Hx Hypertension Renal/ Medical History: Reports: Hx Renal Insufficiency - Immunizations Hx Diphtheria, Pertussis, Tetanus Vaccination: No Review of Systems - Review of Systems Notes: REVIEW OF SYSTEMS: CONSTITUTIONAL : Denies fever. EENT: Denies eye, ear, nose or mouth or throat pain or other symptoms. CARDIOVASCULAR: Denies chest pain. RESPIRATORY: Denies cough, chest congestion, but does have shortness of breath. GASTROINTESTINAL: Denies abdominal pain or nausea, vomiting, or diarrhea. GENITOURINARY: Denies difficulty or painful urinating, urinary frequency, blood in urine. MUSCULOSKELETAL: Denies back or neck pain. Denies joint pain or swelling. SKIN: Denies rash or skin lesions. NEUROLOGICAL: Denies LOC or altered mental status. Denies headache. Denies sensory loss or motor deficits. ALL OTHER SYSTEMS REVIEWED AND NEGATIVE. Physical Exam - Vital signs Vitals: Resp 22 H 10/17/18 12:12 Interpretation: Normal Notes: PHYSICAL EXAMINATION: GENERAL: Well-appearing, in no acute distress. Does not appear to be in pain. HEAD: Atraumatic, normocephalic. EYES: Pupils equal round and reactive to light, extraocular movements intact. ENT: oropharynx clear without exudates. Moist mucous membranes. NECK: Normal range of motion, supple. LUNGS: Breath sounds clear and equal bilaterally. HEART: Regular rate and rhythm without murmurs. No chest wall tenderness. ABDOMEN: Soft, nontender. No guarding or rebound. No masses. BACK: No tenderness throughout entire back. EXTREMITIES: Normal range of motion without pain. Negative Homans bilaterally. NEUROLOGICAL: Normal speech, normal gait. Normal sensory, motor, and reflex exams. Awake, alert, and oriented x3. Cranial nerves normal. PSYCH: Normal mood, normal affect. SKIN: Warm, dry, no rashes. Course - Re-evaluation Re-evalutation: 10/17/18 15:53 Patient's troponin is negative. His total CPK is 130. Patient says that he has been cholesterol medicine for months. He also does acknowledge that he has had some generalized muscle aching for months, as well. Spoke with hospitalist who will admit the patient for observation 10/17/18 20:24 Reviewing chart, I see the patient's drug screen came back positive for cocaine. This could be the reason for the patient's chest pain as well as the reason for his elevated CPK. - Vital Signs Vital signs: Temp Pulse Resp BP Pulse Ox 97.6 F 60 15 134/90 H 100 10/17/18 17:41 10/17/18 19:00 10/17/18 17:41 10/17/18 17:41 10/17/18 17:41 - Laboratory Result Diagrams: 10/17/18 12:28 10/17/18 14:10 Laboratory results interpreted by me: 10/17/18 10/17/18 10/17/18 12: 14:10 14:28 RDW 14.5 H Chloride 108 H Creatinine 1.30 H Est GFR (Non-Af Amer) 58 L Creatine Kinase 1343 H CK-MB (CK-2) 6.39 H - Diagnostic Test Radiology results interpreted by me: 10/17/18 15:48 Chest x-ray is normal. - EKG Interpretation by Ar EKG shows normal: Sinus rhythm Rate: Normal Rhythm: NSR Additional EKG results interpreted by me: 10/17/18 15:48 EKG has normal sinus rhythm. Inferior infarct, age indeterminate. Discharge - Discharge Clinical Impression: Chest pain, Cocaine abuse Condition: Stable Disposition: ADMITTED OBSERVATION Admitting Provider: Hospitalist Unit Admitted: Telemetry
[2018-10-17 13:59] LABS: ABSOLUTE EOSINOPHILS # (AUTO) 0.2 10^3/uL (0.0-0.6); ABSOLUTE LYMPHOCYTES (AUTO) 1.6 10^3/uL (0.5-4.7); ABSOLUTE MONOCYTES (AUTO) 0.5 10^3/uL (0.1-1.4); ABSOLUTE NEUT (AUTO) 2.8 10^3/uL (1.7-8.2); BASOPHILS % (AUTO) 0.5 % (0-2); EOSINOPHILS % (AUTO) 3.5 % (0-6); HEMATOCRIT 43.3 % (37.9-51.0); HEMOGLOBIN 14.4 g/dL (13.5-17.0); LYMPHOCYTES % (AUTO) 31.6 % (13-45); MEAN CORPUSCULAR HEMOGLOBIN 29.3 pg (27.0-33.4); MEAN CORPUSCULAR HGB CONC 33.3 g/dL (32.0-36.0); MEAN CORPUSCULAR VOLUME 88 fl (80-97); PLATELET COUNT 169 10^3/uL (150-450); RED BLOOD COUNT 4.91 10^6/uL (4.35-5.55); RED CELL DISTRIBUTION WIDTH 14.5 % (11.5-14.0); SEGMENTED NEUTROPHILS % (AUTO) 54.4 % (42-78); TOTAL CELLS COUNTED % (AUTO) 100 %; WHITE BLOOD COUNT 5.1 10^3/uL (4.0-10.5)
--- NOTE | 2018-10-17 14:02 | RADIOLOGY REPORT (SQ) ---
EXAM DESCRIPTION: CHEST SINGLE VIEW COMPLETED DATE/TIME: 10/17/2018 1:48 pm REASON FOR STUDY: Chest Pain COMPARISON: 11/22/2016. EXAM PARAMETERS: NUMBER OF VIEWS: One view. TECHNIQUE: Single frontal radiographic view of the chest acquired. RADIATION DOSE: NA LIMITATIONS: None. FINDINGS: LUNGS AND PLEURA: No opacities, masses or pneumothorax. No pleural effusion. MEDIASTINUM AND HILAR STRUCTURES: No masses. Contour normal. HEART AND VASCULAR STRUCTURES: Heart normal in size. Normal vasculature. BONES: No acute findings. HARDWARE: None in the chest. OTHER: No other significant finding. IMPRESSION: NO ACUTE RADIOGRAPHIC FINDING IN THE CHEST. TECHNICAL DOCUMENTATION: JOB ID: [id number] [employer]- All Rights Reserved Reading location - IP/workstation name: [email or web address]
[2018-10-17 14:54] LABS: ALANINE AMINOTRANSFERASE 50 U/L (21-72); ALBUMIN 4.3 g/dL (3.5-5.0); ALKALINE PHOSPHATASE 89 U/L (38-126); ANION GAP 8 (5-19); ASPARTATE AMINO TRANSFERASE 54 U/L (17-59); BILIRUBIN,DIRECT 0.2 mg/dL (0.0-0.4); BILIRUBIN,TOTAL 0.4 mg/dL (0.2-1.3); BLOOD UREA NITROGEN 15 mg/dL (7-20); CALCIUM 9.5 mg/dL (8.4-10.2); CARBON DIOXIDE 29 mmol/L (22-30); CHLORIDE 108 mmol/L (98-107); CREATINE KINASE 1343 U/L (55-170); GLUCOSE 94 mg/dL (75-110); SODIUM 144.6 mmol/L (137-145); TOTAL PROTEIN 7.2 g/dL (6.3-8.2)
[2018-10-17 15:26] LABS: CREATINE KINASE MB 6.39 ng/mL (<4.55)
[2018-10-17 15:32] LABS: TROPONIN I < 0.012 ng/mL
[2018-10-17] MEDS ORDERED: NORMAL SALINE 1000 ML 1,000 ML IV ONE (15:45)
[2018-10-17] MEDS ORDERED: ACETAMINOPHEN 325 MG TABLET PO PRN (16:13)
[2018-10-17 17:22] LABS: APPEARANCE,URINE CLEAR; BILIRUBIN,URINE NEGATIVE (NEGATIVE); COLOR,URINE YELLOW; GLUCOSE, URINE NEGATIVE (NEGATIVE); KETONES,URINE NEGATIVE (NEGATIVE); LEUKOCYTE ESTERASE,URINE NEGATIVE (NEGATIVE); NITRITE,URINE NEGATIVE (NEGATIVE); PROTEIN,URINE NEGATIVE (NEGATIVE); URINE SPECIFIC GRAVITY 1.015; UROBILINOGEN,URINE NEGATIVE mg/dL (<2.0)
[2018-10-17] MEDS ORDERED: NITROGLYCERIN 0.4 MG/TAB 25 TAB/BOTTLE SL PRN (17:27)
[2018-10-17] MEDS ORDERED: MORPHINE SULFATE 10 MG/ML INJ IV PRN (17:27)
[2018-10-17 17:35] LABS: URINE AMPHETAMINES SCREEN NEGATIVE; URINE BARBITURATES SCREEN NEGATIVE; URINE BENZODIAZEPINES SCREEN NEGATIVE; URINE COCAINE SCREEN UNCONFIRMED POSITIVE; URINE MARIJUANA (THC) SCREEN NEGATIVE; URINE METHADONE SCREEN NEGATIVE; URINE PHENCYCLIDINE SCREEN NEGATIVE
--- NOTE | 2018-10-17 17:38 | PDOC H&P ---
History of Present Illness Admission Date/PCP: 10/17/18 15:59 JOSIAH CHAPIN MD Patient complains of: Chest pain History of Present Illness: GONZALES MONTIEL is a 53 year old male who has history of hypertension and dyslipidemia on statin treatment. Patient has history of myocardial infarction about 2 years ago and apparently underwent cardiac catheterization but no intervention was done due to "weak heart". 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 He suddenly developed midsternal nonspecific pain that was not similar to what he had whenever he had his heart attack 2 years ago. Patient went straight to his char dust cleaner and salvager's office and was given nitroglycerin. EMS was called and the patient was transferred to the emergency room. Patient had total of 3 nitroglycerin tablets sublingual before his pain improved. Pain lasted about 1 hour. There was no associated nausea, vomiting, dizziness, lightheadedness, shortness of breath or palpitations. Pain was associated with diaphoresis. Patient is on statin and his CK is elevated. Past Medical History Cardiac Medical History: Reports: Myocardial Infarction, Hyperlipidema, Hypertension Past Surgical History Past Surgical History: Reports: Cardiac Catheterization Social History Smoking Status: Never Smoker Frequency of Alcohol Use: Rare Hx Recreational Drug Use: Yes Drugs: Cocaine Hx Prescription Drug Abuse: No - Advance Directive Resuscitation Status: Full Code Family History Family History: Hyperlipidemia, Hypertension Parental Family History Reviewed: Yes Children Family History Reviewed: Yes Sibling(s) Family History Reviewed.: Yes Medication/Allergy Allergies/Adverse Reactions: pain medications Adverse Reaction (Uncoded 03/27/17 08:26) Review of Systems All systems: reviewed and no additional remarkable complaints except as stated Physical Exam Vital Signs: Temp Pulse Resp BP Pulse Ox 20 138/92 H 97 10/17/18 16:01 10/17/18 16:01 10/17/18 16:01 General appearance: PRESENT: no acute distress, cooperative Head exam: PRESENT: atraumatic, normocephalic Eye exam: PRESENT: EOMI, PERRLA. ABSENT: conjunctival injection, nystagmus Ear exam: ABSENT: bleeding, drainage Mouth exam: PRESENT: moist, neck supple Throat exam: ABSENT: post pharyngeal erythema, tonsillar erythema Neck exam: ABSENT: meningismus, tenderness, tracheostomy Respiratory exam: PRESENT: clear to auscultation ines. ABSENT: accessory muscle use, crackles, wheezes Cardiovascular exam: PRESENT: RRR. ABSENT: diastolic murmur, systolic murmur Pulses: PRESENT: normal carotid pulses, normal radial pulses GI/Abdominal exam: PRESENT: normal bowel sounds, soft. ABSENT: ascites, distended, tenderness Rectal exam: PRESENT: deferred Gentrourinary exam: ABSENT: ecchymosis, erythema Extremities exam: ABSENT: joint swelling, pedal edema, tenderness Musculoskeletal exam: PRESENT: normal inspection. ABSENT: deformity, tenderness Neurological exam: PRESENT: alert, awake, oriented to person, oriented to place , oriented to time, oriented to situation Psychiatric exam: ABSENT: agitated, anxious, depressed Results Laboratory Results: 10/17/18 16:16 Urine Color YELLOW Urine Appearance CLEAR Urine pH 6.0 Ur Specific [place] 1.015 Urine Protein NEGATIVE Urine Glucose (UA) NEGATIVE Urine Ketones NEGATIVE Urine Blood NEGATIVE Urine Nitrite NEGATIVE Ur Leukocyte Esterase NEGATIVE Urine WBC (Auto) 1 Urine RBC (Auto) 0 Impressions: Chest X-Ray 10/17/18 13:40 IMPRESSION: NO ACUTE RADIOGRAPHIC FINDING IN THE CHEST. Assessment & Plan - Diagnosis (1) Chest pain Is this a current diagnosis for this admission?: Yes Plan: Admit the patient for observation Check serial troponins and serial EKG Give aspirin, as needed nitroglycerin and morphine Check stress test tomorrow Consult cardiology (2) Rhabdomyolysis Is this a current diagnosis for this admission?: Yes Plan: Likely statin induced Hold statin We will give IV fluids and monitor CK levels (3) Coronary artery disease Is this a current diagnosis for this admission?: Yes Plan: Patient had cardiac cath 2 years ago with no intervention We will ask for records to review (4) Dyslipidemia Is this a current diagnosis for this admission?: Yes Plan: Check lipid profile Hold statin due to rhabdomyolysis (5) Essential (primary) hypertension Is this a current diagnosis for this admission?: Yes Plan: Monitor blood pressure and resume home meds
--- NOTE | 2018-10-17 20:52 | EKG REPORT ---
SEVERITY:- ABNORMAL ECG - SINUS RHYTHM INFERIOR INFARCT, OLD CONSIDER POSTERIOR WALL INVOLVEMENT : Confirmed by: Divine Kelly MD 17-Oct-2018 20:51:49
[2018-10-17] MEDS: NORMAL SALINE 1000 ML 1,000 ML IV PRN (21:43)
[2018-10-18 03:06] LABS: HEMATOCRIT 44.1 % (37.9-51.0); HEMOGLOBIN 14.7 g/dL (13.5-17.0); MEAN CORPUSCULAR HGB CONC 33.3 g/dL (32.0-36.0); MEAN CORPUSCULAR VOLUME 87 fl (80-97); PLATELET COUNT 157 10^3/uL (150-450); RED BLOOD COUNT 5.06 10^6/uL (4.35-5.55); WHITE BLOOD COUNT 6.1 10^3/uL (4.0-10.5)
[2018-10-18 03:21] LABS: ANION GAP 10 (5-19); BLOOD UREA NITROGEN 17 mg/dL (7-20); CALCIUM 8.8 mg/dL (8.4-10.2); CARBON DIOXIDE 23 mmol/L (22-30); CHLORIDE 111 mmol/L (98-107); CHOLESTEROL 130.47 mg/dL (0-200); CREATINE KINASE 999 U/L (55-170); GLUCOSE 86 mg/dL (75-110); POTASSIUM 4.2 mmol/L (3.6-5.0); SODIUM 143.7 mmol/L (137-145); TRIGLYCERIDES 116 mg/dL (<150)
[2018-10-18 03:43] LABS: DIRECT LDL 85 mg/dL (<100)
[2018-10-18] MEDS: NORMAL SALINE 1000 ML 1,000 ML IV PRN (06:43)
[2018-10-18] MEDS ORDERED: ENOXAPARIN SODIUM INJ 40 MG/0.4 ML DISP.SYRIN SUBCUT SCH (10:00)
[2018-10-18] MEDS ORDERED: ASPIRIN 325 MG TABLET PO SCH (10:00)
--- NOTE | 2018-10-18 13:13 | PDOC DISCHARGE SUMMARY ---
General - Admit/Disc Date/PCP Admission Date/Primary Care Provider: 10/17/18 15:59 JOSIAH CHAPIN MD Discharge Date: 10/18/18 - Discharge Diagnosis (1) Chest pain Is this a current diagnosis for this admission?: Yes (2) Rhabdomyolysis Is this a current diagnosis for this admission?: Yes (3) Coronary artery disease Is this a current diagnosis for this admission?: Yes (4) Dyslipidemia Is this a current diagnosis for this admission?: Yes (5) Essential (primary) hypertension Is this a current diagnosis for this admission?: Yes - Additional Information Resuscitation Status: Full Code Discharge Diet: Cardiac Discharge Activity: Activity As Tolerated Home Medications: Atorvastatin Calcium [Lipitor 80 mg Tablet] 80 mg PO QHS 10/17/18 Clopidogrel Bisulfate [Plavix 75 mg Tablet] 75 mg PO DAILY 10/17/18 Diltiazem HCl [Cartia Xt] 120 mg PO DAILY 10/17/18 Ranolazine [Ranexa 500 mg Tab.sr] 500 mg PO Q12 10/17/18 History of Present Illness History of Present Illness: GONZALES MONTIEL is a 53 year old male who has history of hypertension and dyslipidemia on statin treatment. Patient has history of myocardial infarction about 2 years ago and apparently underwent cardiac catheterization but no intervention was done due to "weak heart". 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 He suddenly developed midsternal nonspecific pain that was not similar to what he had whenever he had his heart attack 2 years ago. Patient went straight to his hospice nurse practitioner's office and was given nitroglycerin. EMS was called and the patient was transferred to the emergency room. Patient had total of 3 nitroglycerin tablets sublingual before his pain improved. Pain lasted about 1 hour. There was no associated nausea, vomiting, dizziness, lightheadedness, shortness of breath or palpitations. Pain was associated with diaphoresis. Patient is on statin and his CK is elevated. Hospital Course Hospital Course: (1) Chest pain Patient was admitted for observation Serial troponins and serial EKG are unremarkable Stress test is negative and the patient is cleared for discharge by cardiology. He was also advised against using cocaine. (2) Rhabdomyolysis Possibly due to statin or cocaine. Patient received IV fluids and his levels improved. (3) Coronary artery disease Patient had cardiac cath 2 years ago with no intervention When we reviewed the records it looks like he had 100% occlusion of the right coronary artery that could not be stented. (4) Dyslipidemia LDL is 85 (5) Essential (primary) hypertension Continue home meds Physical Exam Vital Signs: Temp Pulse Resp BP Pulse Ox 98.2 F 56 L 15 114/66 93 10/18/18 08:00 10/18/18 08:00 10/18/18 08:00 10/18/18 08:00 10/18/18 08:00 Intake & Output 10/17/18 10/18/18 10/19/18 06:59 06:59 06:59 Intake Total 1999 Balance 1999 Weight 194 lb 0.108 oz General appearance: PRESENT: no acute distress, cooperative Head exam: PRESENT: atraumatic, normocephalic Eye exam: PRESENT: EOMI. ABSENT: conjunctival injection Mouth exam: PRESENT: neck supple Neck exam: ABSENT: meningismus Respiratory exam: PRESENT: clear to auscultation ines. ABSENT: accessory muscle use Cardiovascular exam: PRESENT: RRR Pulses: PRESENT: normal carotid pulses GI/Abdominal exam: PRESENT: normal bowel sounds. ABSENT: ascites Rectal exam: PRESENT: deferred Neurological exam: PRESENT: alert, awake, oriented to person, oriented to place , oriented to time, oriented to situation Results Laboratory Results: 10/18/18 02:44 10/18/18 02:44 10/17/18 10/18/18 10/18/18 16:16 02:44 02:44 WBC 6.1 RBC 5.06 Hgb 14.7 Hct 44.1 MCV 87 MCH 29.0 MCHC 33.3 RDW 14.0 Plt Count 157 Sodium 143.7 Potassium 4.2 Chloride 111 H Carbon Dioxide 23 Anion Gap 10 BUN 17 Creatinine 1.26 H Est GFR ( Amer) > 60 Est GFR (Non-Af Amer) > 60 Glucose 86 Calcium 8.8 Triglycerides 116 Cholesterol 130.47 LDL Cholesterol Direct 85 VLDL Cholesterol 23.0 HDL Cholesterol 34 L Urine Color YELLOW Urine Appearance CLEAR Urine pH 6.0 Ur Specific [place] 1.015 Urine Protein NEGATIVE Urine Glucose (UA) NEGATIVE Urine Ketones NEGATIVE Urine Blood NEGATIVE Urine Nitrite NEGATIVE Ur Leukocyte Esterase NEGATIVE Urine WBC (Auto) 1 Urine RBC (Auto) 0 10/17/18 10/18/18 10/18/18 20:20 02:44 02:44 Creatine Kinase 999 H Troponin I < 0.012 < 0.012 10/18/18 08:29 Creatine Kinase Troponin I < 0.012 Impressions: Chest X-Ray 10/17/18 13:40 IMPRESSION: NO ACUTE RADIOGRAPHIC FINDING IN THE CHEST. Qualifiers - * PATIENT BEING DISCHARGED WITH ANY OF THE FOLLOWING DIAGNOSIS: No
[2018-10-18] MEDS ORDERED: REGADENOSON INJ 0.4 MG/5 ML DISP.SYRIN IV ONE (13:43)
[2018-10-18 16:11] VITALS: BP 114/66
--- NOTE | 2018-10-18 21:21 | EKG REPORT ---
SEVERITY:- ABNORMAL ECG - SINUS RHYTHM PROBABLE INFERIOR INFARCT, OLD CONSIDER POSTERIOR WALL INVOLVEMENT : Confirmed by: Divine Kelly MD 18-Oct-2018 21:20:52
--- NOTE | 2018-10-19 20:56 | DRAGON STRESS TEST REPORT ---
Intravenous Lexiscan Cardiolite stress test using single photon emmision computerized tomography. Date of procedure: 10/18/2018. Ordering Provider: .Patient's status : Inpatient. Indication: Chest pain in a patient with history of coronary artery disease, and old PA. Coronary risk factors: Age, hypertension, and dyslipidemia. Resting EKG: Sinus Rhythm. Old inferior wall PA. Nonspecific T changes anterior leads. Stress EKG: No changes of ischemia. The patient had no chest pain or discomfort, and there were no arrhythmias seen. Reason for termination: Protocol. Conclusions: Normal EKG and hemodynamic response to IV Lexiscan. Nuclear data: At rest the patient was given 12.71 millicuries of technetium 99m sestamibi injected intravenously. As per protocol rest non gated SPECT images were obtained. Subsequently the patient was given intravenous Lexiscan at a dose of 0.4 mg in 5 mL intravenously, followed by flush with normal saline. Subsequently the stress dose of 42.5 millicuries of technetium 99m sestamibi was injected intravenously. As per protocol stress gated images were obtained. Nuclear interpretation: Review of images showed that there is a perfusion defect involving the inferior wall, and both rest and stress images. This area of the inferior wall has decreased motion thickening and contraction by gated study, consistent with a prior myocardial infarction. The rest of the segments of the myocardium had normal perfusion at rest, and normal perfusion post stress with IV Lexiscan. The rest of the segments of Myocardium had normal motion, contraction, and thickening by gated study. T. I D. ratio was normal at 0.93. Computer read rest, and stress left ventricular ejection fraction were 69 %, and 68 %, respectively. Conclusion: 1. There is no scintigraphic evidence of Lexiscan induced myocardial ischemia. 2. There is scintigraphic evidence of myocardial infarction/scar involving the inferior wall. Recommendations: Aggressive risk factor modification, and treating the underlying co- morbidities . [facility]
== END 2018-10-18 16:10 | disposition home or self-care (01) ==
LOC: ER 11:53 → EH 15:59 → 4S 17:37
PROVIDERS: ADMIT Family Medicine; ATTEND Family Medicine
DX: R07.9 Chest pain, unspecified (principal); M62.82 Rhabdomyolysis; I25.10 Atherosclerotic heart disease of native coronary artery without angina pectoris; E78.5 Hyperlipidemia, unspecified; I10 Essential (primary) hypertension; R61 Generalized hyperhidrosis; R06.02 Shortness of breath; F14.10 Cocaine abuse, uncomplicated; I25.2 Old myocardial infarction; Z79.899 Other long term (current) drug therapy; Z79.02 Long term (current) use of antithrombotics/antiplatelets; Z98.890 Other specified postprocedural states; Z82.49 Family history of ischemic heart disease and other diseases of the circulatory system; Z23 Encounter for immunization
CPT/HCPCS: 93005 ×2; 99285; 36415 ×2; 82553; 82550 ×2; 85025; 85027; 80048; 80053; 81001; 84484 ×2; 80307; 83036; 80061; 93017; 71045; 78452; 90686; 93010 ×2; G0008; A9500; J2785; J7030 ×2; Q9969; 90471; G0378